=== PATIENT | male | born 1970 | race Caucasian/White ===

== ENCOUNTER 2020-11-16 11:06 | Emergency (ER) | payer BC ==
[~2020-11-16] VITALS: Ht 162.6 cm; Wt 67.1 kg
== END 2020-11-16 12:38 | disposition home or self-care (01) ==
LOC: ER 11:06
DX: S01.121A Laceration with foreign body of right eyelid and periocular area, initial encounter (principal); W45.8XXA Other foreign body or object entering through skin, initial encounter; Y93.89 Activity, other specified; Y92.821 Forest as the place of occurrence of the external cause; Y99.8 Other external cause status